=== PATIENT | female | born 1990 | race Two or more races ===

== ENCOUNTER 2018-02-22 05:49 | Emergency (ER) | payer OTHER ==
[~2018-02-22] VITALS: Ht 160 cm; Wt 67.6 kg
[2018-02-22 05:53] VITALS: Ht 160 cm; Wt 67.6 kg
[2018-02-22 09:48] VITALS: BP 102/70
== END 2018-02-22 09:48 | disposition home or self-care (01) ==
LOC: ED 05:49
DX: S13.4XXA Sprain of ligaments of cervical spine, initial encounter (principal); S20.212A Contusion of left front wall of thorax, initial encounter; S00.83XA Contusion of other part of head, initial encounter; W10.8XXA Fall (on) (from) other stairs and steps, initial encounter; Y93.89 Activity, other specified; Y92.89 Other specified places as the place of occurrence of the external cause; Y99.8 Other external cause status